=== PATIENT | female | born 1955 | race Caucasian/White ===

== ENCOUNTER 2016-08-18 07:00 | Day surgery (SDC) | payer OTHER, MEDICAID ==
[2016-08-18] MEDS ORDERED: D5 LR 1000 ML 1,000 ML IV ONE ×2 (07:32→08:14)
[2016-08-18] MEDS ORDERED: DIPRIVAN VIAL 20 ML ONE (09:45)
[2016-08-18 13:54] VITALS: BP 125/73
== END 2016-08-18 10:25 | disposition home or self-care (01) ==
LOC: SURG1 07:00
PROVIDERS: ATTEND Internal Medicine Gastroenterology
PROC: 0DBE8ZX Excision of Large Intestine, Via Natural or Artificial Opening Endoscopic, Diagnostic (ICD-10-PCS; principal; 2016-08-18 09:15)
PROC: 0DJD8ZZ Inspection of Lower Intestinal Tract, Via Natural or Artificial Opening Endoscopic (ICD-10-PCS; principal; 2016-08-18 09:15)
DX: Z12.11 Encounter for screening for malignant neoplasm of colon (principal); K63.5 Polyp of colon; R19.4 Change in bowel habit; K64.8 Other hemorrhoids; R10.84 Generalized abdominal pain; Z80.0 Family history of malignant neoplasm of digestive organs
CPT/HCPCS: A4217; J3490; J7120

== ENCOUNTER 2016-12-12 11:12 | Emergency (ER) | payer OTHER, MEDICAID ==
[2016-12-12 11:19] VITALS: BP 129/77; BMI 23.1
--- NOTE | 2016-12-12 11:54 | DR.CP ---
HPI - Time Seen Time seen: 11:53 - PCP Primary Care Physician: KANDIS HUYNH - Complaint Chief Complaint Doctor Comments: Patient states that she has been hurting in the mid back and left side for two weeks. She denies trauma. She does admits to raking the yard infrequently. Chief Complaint:: CHEST PAIN FOR 2 WEEKS Self Treatment fo Chief Complaint: ALEVE, PATEL LAUREN MUSCLE RUB - Source History Provided: Patient - Mode of Arrival Mode of Arrival: Ambulatory - Timing Onset of Chief Complaint: 11/28/16 PMH - PMH Past Medical History: Yes Past Medical History: Hypertension, Hypothyroidism Past Surgical History: Yes Surgical History: Appendectomy, Cholecystectomy, Hysterectomy Past Surgical History Comment: RECTAL PROLAPSE, 3FT INTESINTES REMOVED, BLADDER , RIGHT EAR (TOTALLY DEAF), EYE SURG X3 - Family History History of Family Medical Conditions: Yes Family Medical History: Diabetes Mellitus, Cancer, [place], Heart Failure, Hypertension - Social History Does patient currently use any type of tobacco product: No Have you used tobacco products in the last 12 months: No Type of Tobacco Use: None Does any household member use tobacco: No Alcohol Use: None Do you use any recreational Drugs:: No Lives With: Family Lives Where: Home - infectious screening In the last 2 months have you had wt loss of >10#?: NO Have you had fever, night sweats or hemotysis?: No Have you traveled outside the country in the last 6 months?: No Isolation: Standard ROS - Review of Systems Eyes: No Symptoms Reported ENTM: No Symptoms Reported Respiratoy: No Symptoms Reported Cardiovascular: No Symptoms Reported Gastrointestinal/Abdominal: No Symptoms Reported Genitourinary: No Symptoms Reported Neurological: No Symptoms Reported Musculoskeletal: Back (mid back pain to palpation) Integumentary: No Symptoms Reported Hematologic/Lymphatic: No Symptoms Reported Endocrine: No Symptoms Reported Psychiatric: No Symptoms Reported All Other Systems: Reviewed and Negative PE - Vitals Vitals: Temperature 98 F Pulse Rate 82 Respiratory Rate 16 Blood Pressure [Left Arm] 129/80 Blood Pressure [Right Arm] 122/74 Blood Pressure 129/77 O2 Sat by Pulse Oximetry 99 - General Limitations: No Limitations General Appearance: Alert, In No Apparent Distress - Head Head Exam: Normal Inspection, Atraumatic - Eyes Eye exam: Normal Appearance, PERRL, EOMI - ENT ENT Exam: Normal Exam, Normal Oropharynx - Chest Chest Inspection: Normal Inspection, Symmetric Chest Wall Rise - Respiratory Respiratory Exam: Normal Lung Sounds Bilat Respiratory Exam: Bilateral Clear to Auscultation - Cardiovascular Cardiovascular Exam: Regular Rate, Normal Rhythm Pulse: Normal Edema: negative: Normal, 1, 2, 3, 4, Plus, Right, Left, Bilateral, Upper, Lower , Extremity - Abdominal Exam Abdominal Exam: Normal Inspection, Normal Bowel Sounds Abdominal Tenderness: negative: RUQ, RLQ, LUQ, LLQ, Epigastrium, Suprapubic, Diffuse, Mild, Moderate, Severe, Other - Extremities Extremities Exam: Normal Inspection, Full ROM - Back Back Exam: Other (mid back and mid left flank pain ) - Neurologic Neurological Exam: Alert, Oriented X3, CN II-XII Intact - Skin Skin Exam: Warm, Dry, Intact Course - Treatment Treatment: Toradol 30mg IM ROR - XRAY XRAY Interpreted by: Radiologist (X Ray Thoracid Spine: There are minor anterior wedge compression deformities of 2 of the mid to upper thoracic vertebral bodies. The age is inderterminate. Clinical correlation is reocmmended with the patien's history and oint tenderness. A MRI of the thoracic spine could be obtained for a more complete evaluation of the findings. if ciinically indicated. Impression: No acute cardioppulmonary pathology. There are minor anterior wedge compression deformities of 2 of the mid to upper thoracic vertebral bodies.) - Diagnosis Discharge Problem: Thoracic compression fracture Qualifiers: Encounter type: initial encounter Fracture type: closed Qualified Code(s): S22.000A - Wedge compression fracture of unspecified thoracic vertebra, initial encounter for closed fracture - Discharge Plan Condition: Stable - Follow ups/Referrals Follow ups/Referrals: Nikolas Mckenna [Primary Care Provider] - 3 days - Instructions
--- NOTE | 2016-12-12 12:25 | RAD ---
Examination: Chest x-ray. Clinical History: The chest wall pain to palpation. Technique: PA and lateral views of the chest were obtained. Comparison: 04/06/2014. Findings: The cardiac and mediastinal contours are within normal limits. No pneumothorax or pleural effusion is noted. The lungs appear clear. Minor degenerative changes are noted in the spine. There are minor anterior wedge compression deformities of 2 of the mid to upper thoracic vertebral b odies. The age is indeterminate. Clinical correlation is recommended with the patient's history and point tenderness. An MRI of the thoracic spine could be obtained for a more complete evaluation of t he findings, if clinically indicated. Surgical clips are seen overlying the right upper abdomen consistent with a prior cholecystectomy. Impression: 1. No acute cardiopulmonary pathology. 2. There are minor anterior wedge compression deformities of 2 of the mid to upper thoracic vertebra l bodies. The age is indeterminate. Clinical correlation is recommended with the patient's history a nd point tenderness. An MRI of the thoracic spine could be obtained for a more complete evaluation o f the findings, if clinically indicated. Reported By:
[2016-12-12] MEDS ORDERED: TORADOL 30 MG VIAL IM ONE (12:37)
[2016-12-12] MEDS ORDERED: TORADOL 30 MG VIAL ONE (12:38)
== END 2016-12-12 12:52 | disposition home or self-care (01) ==
LOC: ER 11:30
DX: S22.000A Wedge compression fracture of unspecified thoracic vertebra, initial encounter for closed fracture (principal); Y33.XXXA Other specified events, undetermined intent, initial encounter; Y92.096 Garden or yard of other non-institutional residence as the place of occurrence of the external cause
CPT/HCPCS: 71020; 96372; 99282; J1885

== ENCOUNTER → 2016-12-21 | Outpatient (CLI) | payer OTHER, MEDICAID ==
[2016-12-12 11:19] VITALS: BP 129/77
--- NOTE | 2016-12-21 18:27 | MRI ---
HISTORY: Thoracic pain. Study: MRI thoracic spine without contrast. Comparison: None. Technique: Multiplanar/multi sequence imaging of the thoracic spine without contrast. Findings: Anatomic alignment without fracture or listhesis. Multilevel disc desiccation without significant di sc height loss. The visualized bone marrow demonstrates normal signal characteristics. No significan t neural foraminal narrowing or spinal canal stenosis. The visualized spinal cord demonstrates danica l course, caliber, and signal characteristics. The visualized soft tissues are unremarkable. IMPRESSION: No significant neural foraminal narrowing or spinal canal stenosis. Reported By:
== END | disposition home or self-care (01) ==
LOC: RAD 15:01
PROVIDERS: ATTEND Internal Medicine
DX: M51.84 Other intervertebral disc disorders, thoracic region (principal)
CPT/HCPCS: 72146

== ENCOUNTER 2017-09-20 13:53 | Emergency (ER) | payer OTHER, MEDICAID ==
[2017-09-20 13:56] VITALS: BP 138/79; BMI 25.0
[2017-09-20] MEDS ORDERED: ADACEL TDaP IM ONE ×2 (14:12→14:20)
[2017-09-20] MEDS ORDERED: DEMEROL INJ IM ONE (14:12)
--- NOTE | 2017-09-20 14:15 | DR.LACERAT ---
HPI - Time Seen Time seen: 14:10 - Primary Care Physician Primary Care Physician: CATHLEEN - Complaints Chief Complaint Doctors Comments: History as stated. Chief Complaint:: PT. 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 LACERATION IS 4.5 CM X 0.75 CM. - Source History Provided: Patient - Mode of Arrival Mode of Arrival: Wheelchair - Timing Onset of Chief Complaint: 09/20/17 PMH - PMH Past Medical History: Yes Past Medical History: Hypertension, Hypothyroidism Past Surgical History: Yes Surgical History: Appendectomy, Cholecystectomy, Hysterectomy - Family History History of Family Medical Conditions: Yes Family Medical History: Diabetes Mellitus, Cancer, [place], Heart Failure, Hypertension - Social History Does patient currently use any type of tobacco product: No Have you used tobacco products in the last 12 months: No Type of Tobacco Use: None Does any household member use tobacco: No Alcohol Use: None Do you use any recreational Drugs:: No Lives With: Family Lives Where: Home - infectious screening In the last 2 months have you had wt loss of >10#?: NO Have you had fever, night sweats or hemotysis?: No Have you traveled outside the country in the last 6 months?: No Isolation: Standard ROS - Review of Systems Constitutional: No Symptoms Reported Eyes: No Symptoms Reported ENTM: No Symptoms Reported Respiratoy: No Symptoms Reported Cardiovascular: No Symptoms Reported Gastrointestinal/Abdominal: No Symptoms Reported Genitourinary: No Symptoms Reported Neurological: No Symptoms Reported Musculoskeletal: No Symptoms Reported Integumentary: Lesions (A 4cm superficial laceration to the left medial lower extremity) Hematologic/Lymphatic: No Symptoms Reported Endocrine: No Symptoms Reported Psychiatric: No Symptoms Reported All Other Systems: Reviewed and Negative PE - Vital Signs Vitals: Temperature 97.2 F Pulse Rate 88 Respiratory Rate 20 Blood Pressure [Left Arm] 129/80 Blood Pressure [Right Arm] 122/74 Blood Pressure 138/79 O2 Sat by Pulse Oximetry 97 - General General Appearance: Alert - Head Head Exam: Normal Inspection, Atraumatic - Eyes Eye exam: Normal Appearance, PERRL, EOMI - ENT ENT Exam: Normal Exam - Neck Neck Exam: Normal Inspection, Full ROM - Chest Chest Inspection: Normal Inspection - Respiratory Respiratory Exam: Normal Lung Sounds Bilat Respiratory Exam: Bilateral Clear to Auscultation - Cardiovascular Cardiovascular Exam: Regular Rate, Normal Rhythm - Abdominal Exam Abdominal Exam: Normal Inspection, Normal Bowel Sounds Abdominal Tenderness: negative: RUQ, RLQ, LUQ, LLQ, Epigastrium, Suprapubic, Diffuse, Mild, Moderate, Severe, Other - Extremities Extremities Exam: Normal Inspection, Full ROM - Back Back Exam: Normal Inspection, Full ROM - Neurologic Neurological Exam: Alert, Oriented X3, CN II-XII Intact - Psychiatric Psychiatric Exam: Normal Affect, Normal Mood - Skin Skin Exam: Warm Type of Lesion: Laceration (A 4cm superficial laceraton to the left medial lower extremity) Procedures - Laceration/Wound Repair Left Leg Wound Length (cm): 4 Wound's Depth, Shape: Superficial, Linear Wound Explored: clean Betadine Prep?: Yes Anesthesia: 1% Lidocaine w/ Epi (10) Wound Debrided: minimal Wound Repaired With: sutures Suture Size/Type: 4:0, Other (monosoft) Number of Sutures: 10 - Diagnosis Discharge Problem: Laceration of lower extremity Qualifiers: Encounter type: initial encounter Laterality: left Qualified Code(s): S81.812A - Laceration without foreign body, left lower leg, initial encounter - Discharge Plan Condition: Stable - Follow ups/Referrals Follow ups/Referrals: ROE CONNOLLY [Primary Care Provider] - 3 days - Instructions
[2017-09-20] MEDS ORDERED: XYLOCAINE 1% and EPINEPHRINE 1:100,000 ONE (14:16)
[2017-09-20] MEDS ORDERED: DEMEROL INJ ONE (14:20)
[2017-09-20] MEDS ORDERED: HIBICLENS WASH ONE (14:21)
[2017-09-20] MEDS ORDERED: BACITRACIN ZINC ONE (14:52)
== END 2017-09-20 15:05 | disposition home or self-care (01) ==
LOC: ER 13:58
PROC: 0YQTXZZ Repair Right 3rd Toe, External Approach (ICD-10-PCS; principal; 2017-09-20)
DX: S81.812A Laceration without foreign body, left lower leg, initial encounter (principal); W26.0XXA Contact with knife, initial encounter; Y92.89 Other specified places as the place of occurrence of the external cause
CPT/HCPCS: 12002; 90471; 96372; 99282; J2001; J2175

== ENCOUNTER 2017-09-26 12:56 | Emergency (ER) | payer OTHER, MEDICAID ==
[2017-09-26 13:11] VITALS: BP 138/77; BMI 24.7
[2017-09-26] MEDS ORDERED: CLEOCIN 600 MG IV PREMIX 600 MG/50 ML BAG IV ONE (14:57)
--- NOTE | 2017-09-26 14:58 | DR.EXTPAIN ---
HPI - Time seen Time seen: 14:50 - PCP Primary Care Physician: NFD - Complaint/Symptoms Chief Complaint Doctor Comments: Patient was treated for a laceration of left lower extremity 7 days ago, she presents for suture removal and area has faint erythema extending 5mm from the incision site. There is no warmth or discharge Chief Complaint:: PT C/O MONDAY OF LAST WEEK SHE HAD SUTURES PLACED TO PT'S LEFT LATERAL CALF, PT'S WANT IT BE CHECKED PT C/O > PAIN , AND THERE IS REDNESS AROUND TO AREA AND PT STATES IT SWELLS AT NIGHT AND THAT SHE IS TAKING HER KEFLEX, Self Treatment fo Chief Complaint: ULTRAM; ,,, - Source History Provided: Patient - Mode of arrival Mode of Arrival: Ambulatory - Timing Onset of Chief Complaint: 09/20/17 PMH - PMH Past Medical History: Yes Past Medical History: Hypertension, Hypothyroidism Past Surgical History: Yes Surgical History: Appendectomy, Cholecystectomy, Hysterectomy - Family History History of Family Medical Conditions: Yes Family Medical History: Diabetes Mellitus, Cancer, [place], Heart Failure, Hypertension - Social History Does patient currently use any type of tobacco product: No Have you used tobacco products in the last 12 months: No Type of Tobacco Use: None Does any household member use tobacco: No Alcohol Use: None Do you use any recreational Drugs:: No Lives With: Alone Lives Where: Home - infectious screening In the last 2 months have you had wt loss of >10#?: NO Have you had fever, night sweats or hemotysis?: No Have you traveled outside the country in the last 6 months?: No Isolation: Standard ROS - Review of Systems Eyes: No Symptoms Reported ENTM: No Symptoms Reported Respiratoy: No Symptoms Reported Cardiovascular: No Symptoms Reported Gastrointestinal/Abdominal: No Symptoms Reported Genitourinary: No Symptoms Reported Neurological: No Symptoms Reported Musculoskeletal: No Symptoms Reported Integumentary: No Symptoms Reported, Change in Color, Other Hematologic/Lymphatic: No Symptoms Reported Endocrine: No Symptoms Reported Psychiatric: No Symptoms Reported All Other Systems: Reviewed and Negative PE - Vital Signs Vitals: Temperature 96.9 F Pulse Rate 100 Respiratory Rate 18 Blood Pressure [Left Arm] 129/80 Blood Pressure [Right Arm] 122/74 Blood Pressure 138/77 O2 Sat by Pulse Oximetry 99 Course - Treatment Treatment: Clindamycin 600mg IV; partial suture removal done - will follow up in seven days ROR - Labs Reviewed Result Diagrams: 09/26/17 15:04 Laboratory: WBC 6.8 X10^3/uL (3.6-10.0) 09/26/17 15:04 RBC 4.29 X10^6/uL (3.5-5.4) 09/26/17 15:04 Hgb 13.9 g/dL (12.0-16.0) 09/26/17 15:04 Hct 40.2 % (36.0-47.0) 09/26/17 15:04 MCV 93.7 fL (80.0-100.0) 09/26/17 15:04 MCH 32.5 pg (27.0-34.0) 09/26/17 15:04 MCHC 34.7 g/dL (33.0-35.0) 09/26/17 15:04 RDW 13.1 % (11.6-16.5) 09/26/17 15:04 Plt Count 270 X10^3/uL (150.0-450.0) 09/26/17 15:04 MPV 7.1 fL (7.4-11.0) L 09/26/17 15:04 Neut % (Auto) 48.5 % (42.0-75.0) 09/26/17 15:04 Lymph % (Auto) 36.3 % (21.0-51.0) 09/26/17 15:04 [place] % (Auto) 8.5 % (0.0-13.0) 09/26/17 15:04 Eos % (Auto) 5.8 % (0.9-2.9) H 09/26/17 15:04 Baso % (Auto) 0.9 % (0.2-1.0) 09/26/17 15:04 Neut # (Auto) 3.3 x10^3/uL (2.2-4.8) 09/26/17 15:04 Lymph # (Auto) 2.5 X10^3/uL (1.3-2.9) 09/26/17 15:04 [place] # (Auto) 0.6 x10^3/uL (0.3-0.8) 09/26/17 15:04 Eos # (Auto) 0.4 x10^3/uL (0.0-0.2) H 09/26/17 15:04 Baso # (Auto) 0.1 X10^3/uL (0.0-0.1) 09/26/17 15:04 Absolute Nucleated RBC 0.1 /100WBC 09/26/17 15:04 C-Reactive Protein 5.90 mg/L (0-3.0) H 09/26/17 15:04 - Diagnosis Discharge Problem: Cellulitis of left lower extremity, Visit for suture removal - Discharge Plan Condition: Stable - Follow ups/Referrals Follow ups/Referrals: NFD,None [Primary Care Provider] - 3 days - Instructions
[2017-09-26] MEDS ORDERED: CLEOCIN VIAL 600 MG ONE (14:59)
[2017-09-26 15:17] LABS: BASOPHILS # (AUTO) 0.1 X10^3/uL (0.0-0.1); BASOPHILS % (AUTO) 0.9 % (0.2-1.0); EOSINOPHILS # (AUTO) 0.4 x10^3/uL (0.0-0.2); EOSINOPHILS % (AUTO) 5.8 % (0.9-2.9); HEMATOCRIT 40.2 % (36.0-47.0); HEMOGLOBIN 13.9 g/dL (12.0-16.0); LYMPHOCYTES # (AUTO) 2.5 X10^3/uL (1.3-2.9); LYMPHOCYTES % (AUTO) 36.3 % (21.0-51.0); MEAN CORPUSCULAR HEMOGLOBIN 32.5 pg (27.0-34.0); MEAN CORPUSCULAR HGB CONC 34.7 g/dL (33.0-35.0); MEAN CORPUSCULAR VOLUME 93.7 fL (80.0-100.0); MEAN PLATELET VOLUME 7.1 fL (7.4-11.0); MONOCYTES # (AUTO) 0.6 x10^3/uL (0.3-0.8); MONOCYTES % (AUTO) 8.5 % (0.0-13.0); NEUTROPHILS # (AUTO) 3.3 x10^3/uL (2.2-4.8); NEUTROPHILS % (AUTO) 48.5 % (42.0-75.0); PLATELET COUNT 270 X10^3/uL (150.0-450.0); RED BLOOD COUNT 4.29 X10^6/uL (3.5-5.4); RED CELL DISTRIBUTION WIDTH 13.1 % (11.6-16.5); WHITE BLOOD COUNT 6.8 X10^3/uL (3.6-10.0)
[2017-09-26] MEDS ORDERED: BACITRACIN ZINC ONE (16:15)
== END 2017-09-26 16:28 | disposition home or self-care (01) ==
LOC: ER 13:54
DX: L03.116 Cellulitis of left lower limb (principal); Z48.02 Encounter for removal of sutures
CPT/HCPCS: 36415; 85025; 86140; 87040; 96365; 96374; 99282; 99283; A4222; S0077